=== PATIENT | female | born 1955 | race Caucasian/White ===

== ENCOUNTER → 2021-03-17 | Outpatient (CLI) | payer OTHER | LOC: CAT 09:09 | PROVIDERS: ATTEND Family Medicine | DX: Z13.6 Encounter for screening for cardiovascular disorders (principal) ==

== ENCOUNTER → 2021-03-27 | Outpatient (CLI) | payer OTHER, MEDICARE | LOC: SJCVC 13:14 | PROVIDERS: ATTEND Internal Medicine Cardiovascular Disease | DX: R93.1 Abnormal findings on diagnostic imaging of heart and coronary circulation (principal); E78.00 Pure hypercholesterolemia, unspecified; E03.9 Hypothyroidism, unspecified; Z82.49 Family history of ischemic heart disease and other diseases of the circulatory system; Z72.89 Other problems related to lifestyle; Z79.899 Other long term (current) drug therapy; Z88.1 Allergy status to other antibiotic agents ==

== ENCOUNTER → 2021-04-28 | Outpatient (CLI) | payer OTHER, MEDICARE | LOC: SJCVCIMAG 09:16 | PROVIDERS: ATTEND Internal Medicine Cardiovascular Disease | DX: R93.1 Abnormal findings on diagnostic imaging of heart and coronary circulation (principal); E78.00 Pure hypercholesterolemia, unspecified; R06.00 Dyspnea, unspecified; R53.83 Other fatigue; I25.10 Atherosclerotic heart disease of native coronary artery without angina pectoris; Z79.899 Other long term (current) drug therapy; Z82.49 Family history of ischemic heart disease and other diseases of the circulatory system ==